=== PATIENT | female | born 1995 | race Caucasian/White ===

== ENCOUNTER → 2019-01-15 | Outpatient (CLI) | payer MEDICAID ==
--- NOTE | 2019-01-15 12:11 | Diagnostic Imaging Report ---
INDICATION: Antepartum bleeding, second trimester. TECHNIQUE: Multiple Real-time grayscale images were obtained over the gravid uterus. COMPARISON: There are no prior studies available for comparison. FINDINGS: There is a single live fetus in variable presentation. heart motion was noted and a rate of 147 BPM was recorded. There are no abnormalities identified but the spine and the intracranial ventricles were not well imaged. The growth parameters are fairly uniform. The placenta is posterior and there is no previa. The amniotic fluid volume is within normal limits. The cervix measures 3.6 in length. IMPRESSION: 1. There is a single live fetus of approximately 19 weeks 4 days gestation plus/minus 1.5 weeks. The EDC is 06/07/2019. 2. There were no abnormalities identified although the intracranial ventricles and the spine were not well imaged. A short-term (4-6 week) followup exam would be recommended for further study. 3. The growth parameters are fairly uniform. Biometrical measurements are as follows: Biparietal 4.45 cm, age 19 weeks 4 days. Head circumference 17.17 cm, age 19 weeks 6 days. Abdominal circumference 14.44 cm, age 19 weeks 6 days. Femur length 2.83 cm, age 18 weeks 5 days. Sonographic estimate age: 19 weeks 4 days. Sonographic estimated date of delivery: 06/07/2019. Estimated Weight: 286 gm (+/- 42 gm). LMP percentile: 87%. heart rate: 147 beats per minute. number: 1 of 1. IMPRESSION: Dictated by: Dictated on workstation # [id number]
== END ==
LOC: RAD 10:33
PROVIDERS: ATTEND Obstetrics & Gynecology
DX: O46.92 Antepartum hemorrhage, unspecified, second trimester (principal); Z3A.19 19 weeks gestation of pregnancy
CPT/HCPCS: 76805

== ENCOUNTER → 2019-03-02 | Outpatient (CLI) | payer MEDICAID ==
--- NOTE | 2019-03-02 13:42 | Diagnostic Imaging Report ---
INDICATION: Follow up anatomy. TECHNIQUE: Multiple real-time grayscale images were obtained over the gravid uterus. COMPARISON: 01/15/2019. FINDINGS: There is a single live fetus in a cephalic presentation. heart rate was recorded at 150 beats per minute. Placenta is posterior. Amniotic fluid volume is normal. Followup anatomy of the brain and spine was attempted. anatomy is still difficult due to positioning. IMPRESSION: Limited study due to positioning. Continued followup of brain and spine anatomy is recommended. Dictated by: Dictated on workstation # [id number]
== END ==
LOC: RAD 09:50
PROVIDERS: ATTEND Obstetrics & Gynecology
DX: Z36.89 Encounter for other specified antenatal screening (principal); Z3A.24 24 weeks gestation of pregnancy
CPT/HCPCS: 76816

== ENCOUNTER → 2019-04-18 | Outpatient (CLI) | payer MEDICAID ==
--- NOTE | 2019-04-18 12:47 | Diagnostic Imaging Report ---
INDICATION: Follow up anatomy. TECHNIQUE: Multiple real-time grayscale images were obtained over the gravid uterus. COMPARISON: 03/02/2019. FINDINGS: There is a single live fetus in a cephalic presentation. heart rate was recorded at 139 beats per minute. Placenta is fundal. Amniotic fluid index is 13.8 cm. spine is well seen today and appears unremarkable. brain is again not well seen today due to position. IMPRESSION: Limited evaluation of the brain due to position. The spine is unremarkable. Dictated by: Dictated on workstation # [id number]
== END ==
LOC: RAD 11:56
PROVIDERS: ATTEND Obstetrics & Gynecology
DX: Z34.93 Encounter for supervision of normal pregnancy, unspecified, third trimester (principal); Z3A.31 31 weeks gestation of pregnancy
CPT/HCPCS: 76816

== ENCOUNTER → 2019-05-21 | Outpatient (CLI) | payer MEDICAID ==
--- NOTE | 2019-05-21 12:40 | Diagnostic Imaging Report ---
INDICATION: Gestational diabetes, evaluate anatomy not seen on prior sonogram. TECHNIQUE: Multiple real-time grayscale images were obtained over the gravid uterus. COMPARISON: None. FINDINGS: Obstetrical ultrasonography reveals coto intrauterine gestation in cephalic presentation. Placenta is fundal without evidence of previa. Amniotic fluid index is 14 cm. cardiac activity is present with a rate of 144 beats per minute. Similar to previous study, intracranial structures are not well seen due to position. Otherwise, no anomaly is identified. biometry indicates gestational age of 36 weeks. This does indicate normal progression when compared to previous examination. Note is made of breathing motion. There is movement and tone. IMPRESSION: 1. Normal biophysical profile score of 8/8. 2. Obstetrical ultrasonography is also unremarkable with normal progression of parameters. The previous sonographic EDC of 06/14/2019 remains valid. Once again, the intracranial structures were not well visualized. Biometrical measurements are as follows: Biparietal 8.24 cm, age 33 weeks 1 days. Head circumference 32.38 cm, age 36 weeks 5 days. Abdominal circumference 33.62 cm, age 37 weeks 4 days. Femur length 6.86 cm, age 35 weeks 2 days. Sonographic estimate age: 35 weeks 5 days. Sonographic estimated date of delivery: 06/20/2019. Estimated Weight: 2915 gm (+/- 426 gm). LMP percentile: 48%. heart rate: 144 beats per minute. number: 1 of 1. Dictated by: Dictated on workstation # [id number]
== END ==
LOC: RAD 11:32
PROVIDERS: ATTEND Obstetrics & Gynecology
DX: Z04.89 Encounter for examination and observation for other specified reasons (principal); O24.410 Gestational diabetes mellitus in pregnancy, diet controlled; Z3A.35 35 weeks gestation of pregnancy
CPT/HCPCS: 76805; 76819

== ENCOUNTER 2019-06-03 04:49 | Inpatient (IN) | payer MEDICAID | END 2019-06-05 17:30 | disposition home or self-care (01) | LOC: WSo 04:49 → LDRP 04:52 → WSo 05:19 → LDRP 05:19 ==

== ENCOUNTER 2022-12-30 12:40 | Emergency (ER) | payer SELFPAY ==
[~2022-12-30] VITALS: Ht 157.4 cm; Wt 52.0 kg
[~2022-12-30 12:40] MED LIST: ACET-78 PO; FERR-84 PO; IBUP-844 PO; PREN-53 PO
--- NOTE | 2022-12-30 13:10 | ED Abdominal Pain ---
General Chief Complaint: - Reproductive Stated Complaint: ABDOMINAL PAIN Nursing Triage Note: PT AMB TO RM 4 WITH CC OF LEFT LOWER ABD PAIN X5 DAYS WITH N/V. PT TOOK A TEST 2-3 WEEKS AGO AND IT WAS POSITIVE. Source of Information: Patient Exam Limitations: No Limitations History of Present Illness Date Seen by Provider: Dec 30, 2022 Time Seen by Provider: 12:59 Initial Comments 27-year-old female presents to the emergency room with 1 week of left lower quadrant/left pelvic pain. Patient states it hurts to lay on her left side, she states the pain radiates across her lower abdomen. She has had fairly significant nausea and vomiting taking fxtn-gop-sjffayt B6 and Unisom for her nausea. She denies fevers or chills. No burning with urination. She does endorse a light clear yellow vaginal discharge for the last week with occasional spotting. She states her last menstrual cycle was November 18 which places her at an estimated gestational age of exactly 6 weeks. She states her last was 4 years ago vaginal delivery without complications and she had lots of nausea and vomiting with that. She denies any constipation issues she actually has some diarrhea. She is pushing fluids as much as she can. No fevers chills or URI symptoms. Has not taken any medications for the pain. She is concerned for ectopic . All other review of systems reviewed and negative except as stated Timing/Duration: 3-4 Days Severity/Quality: Moderate, Aching Location: LLQ (left low pelvic) Radiation: Other (across lower abdomen) Activities at Onset: None Modifying Factors: Worsens With Coughing, Worsens With Lying down Associated Symptoms: Back Pain (left posterior hip), Nausea/Vomiting Allergies and Home Medications Allergies Coded Allergies: No Known Drug Allergies (Unverified , 06/03/19) Patient Home Medication List Home Medication List Reviewed: Yes Acetaminophen (Acetaminophen) 500 Mg Tablet, 1,000 MG PO Q8HR Prescribed by: OSVALDO AYALA on 06/04/191713 Ferrous Sulfate (Iron) 325 Mg Tablet, 325 MG PO DAILY, (Reported) Entered as Reported by: ANDREW LEAL on 06/03/19 0554 Ibuprofen (Ibu) 600 Mg Tablet, 600 MG PO Q6HR Prescribed by: OSVALDO AYALA on 06/04/191713 Rqe773/Iron Fumarate/FA/Dss ( 19 Tablet) 1 Each Tablet, 1 EACH PO DAILY, (Reported) Entered as Reported by: ANDREW LEAL on 06/03/19 0539 Review of Systems Review of Systems Constitutional: see HPI EENTM: No Symptoms Reported Respiratory: No Symptoms Reported Gastrointestinal: Abdominal Pain, Nausea, Vomiting Genitourinary: Discharge (yellowish) Musculoskeletal: back pain (left posterior) All Other Systems Reviewed Negative Unless Noted: Yes Past Wsxxjqd-Lqrujd-Kjtltv Hx Patient Social History Tobacco Use?: No Smoking Status: Former Smoker Substance use?: Yes Substance type: Marijuana Alcohol Use?: No Immunizations Up To Date PED Vaccines UTD: No Seasonal Allergies Seasonal Allergies: Yes Past Medical History Surgeries: No Respiratory: No Cardiac: No Neurological: No Genitourinary: No Gastrointestinal: No Musculoskeletal: No Endocrine: Yes HEENT: No Cancer: No Psychosocial: No Integumentary: No Blood Disorders: No Adverse Reaction/Blood Tranf: No Family Medical History Diabetes mellitus 19 MOTHER, Onset:30's - 40 Physical Exam Vital Signs Vital Signs - First Documented 12/30/22 12:56 Pulse 74 B/P (MAP) 133/83 (100) Pulse Ox 97 O2 Delivery Room Air Capillary Refill : Height/Weight/BMI Height: 5'2.00" Weight: 156lbs. 0.0oz. 70.213631ea; 20.00 BMI Method: General Appearance: WD/WN, no apparent distress HEENT: PERRL/EOMI Respiratory: lungs clear, normal breath sounds, no respiratory distress, no accessory muscle use Cardiovascular: regular rate, rhythm Gastrointestinal: normal bowel sounds, non tender, soft, other (obturator sign equivocal bilaterally) Extremities: normal range of motion, non-tender, normal inspection, no pedal edema Back: other (left posterior hip/PSIS) Neurologic/Psychiatric: alert, normal mood/affect, oriented x 3 Skin: normal color, warm/dry Progress/Results/Core Measures Results/Orders Lab Results Laboratory Tests Test 12/30/22 13:08 12/30/22 13:10 Range/Units White Blood Count 8.1 4.3-11.0 10^3/uL Red Blood Count 3.88 3.80-5.11 10^6/uL Hemoglobin 12.1 11.5-16.0 g/dL Hematocrit 35 35-52 % Mean Corpuscular Volume 90 80-99 fL Mean Corpuscular Hemoglobin 31 25-34 pg Mean Corpuscular Hemoglobin Concent 35 32-36 g/dL Red Cell Distribution Width 12.6 10.0-14.5 % Platelet Count 280 130-400 10^3/uL Mean Platelet Volume 10.0 9.0-12.2 fL Immature Granulocyte % (Auto) 0 % Neutrophils (%) (Auto) 54 42-75 % Lymphocytes (%) (Auto) 39 12-44 % Monocytes (%) (Auto) 6 0-12 % Eosinophils (%) (Auto) 0 0-10 % Basophils (%) (Auto) 1 0-10 % Neutrophils # (Auto) 4.3 1.8-7.8 10^3/uL Lymphocytes # (Auto) 3.2 1.0-4.0 10^3/uL Monocytes # (Auto) 0.5 0.0-1.0 10^3/uL Eosinophils # (Auto) 0.0 0.0-0.3 10^3/uL Basophils # (Auto) 0.1 0.0-0.1 10^3/uL Immature Granulocyte # (Auto) 0.0 0.0-0.1 10^3/uL Human Chorionic Gonadotropin, Quant 75461 H <5 MIU/ML Urine Color YELLOW Urine Clarity CLEAR Urine pH 6.5 5-9 Urine Specific [place] 1.025 H 1.016-1.022 Urine Protein TRACE H NEGATIVE Urine Glucose (UA) NEGATIVE NEGATIVE Urine Ketones 1+ H NEGATIVE Urine Nitrite NEGATIVE NEGATIVE Urine Bilirubin NEGATIVE NEGATIVE Urine Urobilinogen 1.0 < = 1.0 MG/DL Urine Leukocyte Esterase NEGATIVE NEGATIVE Urine RBC (Auto) NEGATIVE NEGATIVE Urine RBC NONE /HPF Urine WBC 0-2 /HPF Urine Squamous Epithelial Cells 10-25 H /HPF Urine Crystals NONE /LPF Urine Bacteria MODERATE H /HPF Urine Casts NONE /LPF Urine Mucus LARGE H /LPF Urine Culture Indicated YES My Orders Orders - ML BILLS MD Ua Culture If Indicated (12/30/22 13:06) Cbc With Automated Diff (12/30/22 13:06) Hcg,Quantitative (12/30/22 13:06) Urine Culture (12/30/22 13:10) Us Ob<14 Wks Sngle W/Transvag (12/30/22 14:22) Vital Signs/I&O 12/30/22 12:56 Pulse 74 B/P (MAP) 133/83 (100) Pulse Ox 97 O2 Delivery Room Air Blood Pressure Mean: 100 Progress Progress Note : Time: 15:13 Progress Note Patient seen and evaluated, physical exam, lab including quantitative hCG, CBC, urine test as well as transvaginal ultrasound. Physical exam pertinent for well-developed well-nourished female in no acute distress abdomen is soft, bowel sounds are present. Minimal tenderness to the lower quadrants bilaterally. No peritoneal signs. Lungs are clear heart is regular vital signs are stable. Differential diagnosis based on history and physical, IUP versus ectopic , UTI. Labs reviewed, CBC is normal quantitative hCG is 42,000. Urinalysis shows 10-25 squamous epithelial cells with moderate to large bacteria. Nitrite negative leukocyte esterase negative. Transvaginal ultrasound reveals an intrauterine at approximately 6 weeks gestation with a heart rate of 115, no evidence of ectopic, no free fluid, no concerning cysts. Patient is reassured her is healthy at this time. She is advised Tylenol is safe in . Recommended close follow-up with OB provider, she plans on following up with Dr. Carter. Encouraged vitamins. Return precautions given. Patient verbalized understanding, is comfortable with plan of care. All questions are sought and answered Departure Impression Primary Impression: First trimester Additional Impressions: LLQ abdominal pain Asymptomatic bacteriuria antepartum Disposition: 01 HOME, SELF-CARE Condition: Stable Departure-Patient Inst. Decision time for Depature: 15:16 Referrals: NO,LOCAL PHYSICIAN (PCP) Primary Care Physician YOLANDA CARTER DO Patient Instructions: - The Second Month Add. Discharge Instructions: Continue to try and drink plenty fluids to stay well-hydrated. vitamin Gummies may be better on your stomach than the pills. Try taking this at night before bed. Continue the Unisom and B6 as needed for nausea and vomiting If you develop vaginal bleeding, worsening pain/cramping or any other emergent, concerning symptoms please return to the emergency department for reevaluation. Please follow-up with your OB provider as scheduled Scripts Cephalexin (Cephalexin) 500 Mg Tablet 500 MG PO TID for 5 Days, #15 TAB Prov: ML BILLS MD 12/30/22 ML BILLS MD Dec 30, 2022 13:10
[2022-12-30 13:16] LABS: BASOPHILS # (AUTO) 0.1 10^3/uL (0.0-0.1); BASOPHILS % (AUTO) 1 % (0-10); EOSINOPHILS % (AUTO) 0 % (0-10); HEMATOCRIT 35 % (35-52); HEMOGLOBIN 12.1 g/dL (11.5-16.0); LYMPHOCYTES # (AUTO) 3.2 10^3/uL (1.0-4.0); LYMPHOCYTES % (AUTO) 39 % (12-44); MEAN CORPUSCULAR HEMOGLOBIN 31 pg (25-34); MEAN CORPUSCULAR HGB CONC 35 g/dL (32-36); MEAN CORPUSCULAR VOLUME 90 fL (80-99); MONOCYTES # (AUTO) 0.5 10^3/uL (0.0-1.0); MONOCYTES % (AUTO) 6 % (0-12); NEUTROPHILS # (AUTO) 4.3 10^3/uL (1.8-7.8); NEUTROPHILS % (AUTO) 54 % (42-75); PLATELET COUNT 280 10^3/uL (130-400); WHITE BLOOD COUNT 8.1 10^3/uL (4.3-11.0)
[2022-12-30 13:17] LABS: BILIRUBIN,URINE NEGATIVE (NEGATIVE); CLARITY,URINE CLEAR; COLOR,URINE YELLOW; GLUCOSE, URINE (UA) NEGATIVE (NEGATIVE); KETONES,URINE 1+ (NEGATIVE); LEUKOCYTE ESTERASE ,URINE NEGATIVE (NEGATIVE); NITRITE,URINE NEGATIVE (NEGATIVE); PH,URINE 6.5 (5-9); PROTEIN,URINE TRACE (NEGATIVE)
[2022-12-30 13:25] LABS: BACTERIA,URINE MODERATE /HPF; WBC,URINE 0-2 /HPF
--- NOTE | 2022-12-30 15:24 | Diagnostic Imaging Report ---
INDICATION: Left lower pelvic pain. There is a single live IUP measuring 6 weeks 1 day gestation. heart rate was recorded at 115 bpm. No ramona-gestational sac hemorrhage is detected. Adnexa are unremarkable. There is no free fluid identified. IMPRESSION: Single live IUP 6 weeks 1 day gestational age with estimated date of confinement sonographically 08/24/2023. No complicating features are detected. Dictated by: Dictated on workstation # [id number]
[2022-12-30 15:30] VITALS: BP 114/49
[2022-12-30] MEDS ORDERED: CEPH500T PO (15:33)
== END 2022-12-30 15:30 | disposition home or self-care (01) ==
LOC: EDUNIT# 12:40 → ER 12:42
DX: O26.891 Other specified pregnancy related conditions, first trimester (principal); R10.32 Left lower quadrant pain; O99.891 Other specified diseases and conditions complicating pregnancy; R82.71 Bacteriuria; Z87.891 Personal history of nicotine dependence; Z3A.01 Less than 8 weeks gestation of pregnancy
CPT/HCPCS: 36415; 76801; 76817; 81000; 84702; 85025; 87088

== ENCOUNTER → 2023-04-04 | Outpatient (CLI) | payer MEDICAID ==
[~2023-04-04] MED LIST changes: +CEPH500T PO
--- NOTE | 2023-04-04 16:39 | Diagnostic Imaging Report ---
INDICATION: patient, survey. TECHNIQUE: Multiple real-time grayscale images were obtained over the gravid uterus. COMPARISON: None during this . FINDINGS: There is a single live intrauterine fetus measuring 20 weeks 1 day in size with sonographic EDC of 08/21/2023. The fetus is in breech presentation at this time. Placenta is posterior with no evidence of previa. Amniotic fluid index is 11.6 cm. heart rate is 140 BPM. Cervical length is 3.9 cm. The distance from the cervical os to the placental tip was 3.7 cm. There is no free fluid. survey demonstrated normal-appearing kidneys and bladder. Normal-appearing intracranial ventricles are seen. stomach appeared normal. Four-chamber heart view appeared normal. Three-vessel cord and cord insertion appear normal. Views of the spine were unremarkable. Biometrical measurements are as follows: Biparietal 4.58 cm, age 19 weeks 6 days. Head circumference 18.14 cm, age 20 weeks 4 days. Abdominal circumference 15.46 cm, age 20 weeks 5 days. Femur length 2.99 cm, age 19 weeks 2 days. Sonographic estimate age: 20 weeks 1 days. Sonographic estimated date of delivery: 08/19/23. Estimated Weight: 328 gm (+/- 48 gm). LMP percentile: 25%. heart rate: 140 beats per minute. number: 1 of 1. IMPRESSION: Single live intrauterine fetus measuring 20 weeks 1 day in size. There was no detectable abnormality. Dictated by: Dictated on workstation # [id number]
== END ==
LOC: RAD 14:39
PROVIDERS: ATTEND Nurse Practitioner Women's Health
DX: Z34.02 Encounter for supervision of normal first pregnancy, second trimester (principal); Z3A.20 20 weeks gestation of pregnancy
CPT/HCPCS: 76805

== ENCOUNTER 2023-08-09 06:30 | Inpatient (IN) | payer MEDICAID ==
[~2023-08-09] VITALS: Ht 157.5 cm; Wt 74.7 kg
[2023-08-09] VITALS (48 sets, daily range): BP systolic 81–126; BP diastolic 44–74
--- OUTSIDE RECORDS SUMMARY | 2023-08-09 07:34 | XMS REPORT ---
Author Author [facility] Address Unknown Phone Unavailable Care Team Providers Care B Operator Name Role Phone DREW AMARO Unavailable PROBLEMS Type Condition ICD9-CM Code TDP40-LC Code Onset Dates Condition Status W/U Status Risk SNOMED Code Notes Problem Screening examination for venereal disease V74.5 [id number] visit for: screenin g exam bact/spi rochetal STD Problem Symptoms of depression F32.9 confirmed [id number] Problem Acute left-sided back pain with sciatica M54.42 confirmed [id number] Problem General counseling for prescription of oral contraceptive s V25.01 [id number] Oral Contrace ptives Problem Other, multiple, and unspecified sites, insect bite, nonvenomous, infected 919.5 [id number] INSECT BITE INFECTED Problem 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 [id number] [place] [address] 16 Jun, 2021 DREW AMARO Cough R05 ; Nausea R11.0 ; Sore throat J02.9 ; Stuffy and runny nose J34.89 ; Diarrhea, unspecified type R19.7 ; Myalgia M79.10 and Vomiting alone R11.10 SOCIAL HISTORY Sex Assigned At : Social History Observation Description Sex Assigned At Unknown Cessation Question Answer Notes Date Tobacco Cessation Provided: 04/24/2020 PHQ2 Question Answer Notes In the last 2 weeks, how oft en have you had little interest or pleasure in doing things? More than half the days In the last 2 weeks, how oft en have you been feeling down, depressed, or hopeless? More than half the days Total PHQ2 Score 4 REASON FOR REFERRAL No Information MEDICATIONS Medication SIG (Take, Route, Frequency, Duration) Notes Start Date End Date Status Norgestimate-Eth Estradiol 0.25-35 MG-MCG 1 tablet Orally Once a day for 90 days Sep, Active REASON FOR VISIT Covid Testing-[employer] [employer]-Exposed Symptomatic-[employer]--eileen rosenberg MEDICAL (GENERAL) HISTORY Type Description Date Surgical History IUD following child er, MENTAL STATUS No Information ASSESSMENTS Encounter Date Diagnosis Assessment Notes Treatment Notes Treatment Clinical Notes Jun, Cough (ICD-10 - R05) Jun, Nausea (ICD-10 - R11.0) Jun, Sore throat (ICD-10 - J02.9) Jun, Stuffy and runny nose (ICD-10 - J34.89) Jun, Diarrhea, unspecified type (ICD-10 - R19.7) Jun, Myalgia (ICD-10 - M79.10) Jun, Vomiting alone (ICD-10 - R11.10) Jun, Other Patient was instructed to self-isolate at home until further instruction from clinic staff PLAN OF TREATMENT Medication Medication Name Sig Start Date Stop Date Norgestimate-Eth Estradiol 0.25-35 MG-MCG 1 tablet Orally Once a day for 90 days Sep, MEDICATIONS ADMINISTERED Medication Instructions Date of Administration Dosag e TORADOL 30 MG/2ML (KETOROLAC) Apr, 0 60 mg
--- NOTE | 2023-08-09 07:44 | History & Physical-OB ---
OB - Chief Complaint & HPI Date/Time Date of Admission: Date of Admission: Aug 09, 2023 at 07:25 Date seen by a Provider: Aug 09, 2023 Time Seen by a Provider: 07:42 Chief Complaint/History OB-Reason for Admission/Chief: Induction of Labor Hx : 2 Hx Para: 1 Expected Date of Delivery: Aug 19, 2023 Gestational Age in Weeks: 38 Gestational Age in Days: 4 Other reason for admission: IOL at 38 weeks due to GDMA2 Admission Nurse Assessment Rev: Yes History of Labs O pos Antibody neg RI RPR NR HBsAg NR HIV NR GC neg GBS neg Allergies and Home Medications Allergies Coded Allergies: No Known Drug Allergies (Unverified , 06/03/19) Patient Home Medication List Home Medication List Reviewed: Yes Acetaminophen (Acetaminophen) 500 Mg Tablet, 1,000 MG PO Q8HR Prescribed by: OSVALDO AYALA on 06/04/191713 Cephalexin (Cephalexin) 500 Mg Tablet, 500 MG PO TID Prescribed by: ML BILLS on 12/30/22 153 Ferrous Sulfate (Iron) 325 Mg Tablet, 325 MG PO DAILY, (Reported) Entered as Reported by: ANDREW LEAL on 06/03/19538 Ibuprofen (Ibu) 600 Mg Tablet, 600 MG PO Q6HR Prescribed by: OSVALDO AYALA on 06/04/191713 Srd700/Iron Fumarate/FA/Dss ( 19 Tablet) 1 Each Tablet, 1 EACH PO DAILY, (Reported) Entered as Reported by: ANDREW LEAL on 06/03/1939 OB - History Hx of Present Care: Yes Ultrasounds: Normal mid trimester US Obstetrical Complications: Gestational Diabetes Medical Complications: None Delivery History Adverse Rxn to Tranfusion: No Patient Past Medical History nc Immunizations Hepatitis A: Yes Hepatitis B: Yes OB - Admission Exam Physical Exam HEENT: NCAT Heart: Rhythm Normal Lungs: Clear Abdomen: Gravid Extremities: Normal Reflexes: Normal Cervical Dilatation: 3cm Effacement: 75% Station: -1 Membranes: Intact Heart Rate: 130's Accelerations: Accelerations Present Decelerations: No Decelerations Short Term Variability: Present Correction Variability: Average (6-25) Contractions on Admission: 6-10 Minutes Apart Intensity: Mild Selby Scoring Tool (Modified) Dilation (cm): 3-4cm (2) Effacement (%): 51-79% (2) Descent/Station: -1,0 (2) Cervix Consistency: Soft (2) Cervix Position: Anterior (2) Add 1 point for: Each previous vaginal delivery (1) Selby Score: 11 OB - Assessment/Plan/Diagnosis Assessment Assessment: induction of labor Admission Dx 28 yo @ 38 weeks GDMA2- on glyburide GBS neg Admission Status: Inpatient Order (span 2 midnights) Reason for Inpatient Admission: IOL at 38 weeks Plan Plan: Induction Induction Method: YOLANDA CAVAZOS DO Aug 09, 2023 07:44
[2023-08-09] MEDS ORDERED: OXYTOCIN DRIP PRE-MIX 500 ML IV SCH ×2 (08:30→16:00)
[2023-08-09 08:39] LABS: BASOPHILS # (AUTO) 0.1 10^3/uL (0.0-0.1); BASOPHILS % (AUTO) 1 % (0-10); EOSINOPHILS # (AUTO) 0.1 10^3/uL (0.0-0.3); EOSINOPHILS % (AUTO) 1 % (0-10); HEMATOCRIT 32 % (35-52); HEMOGLOBIN 10.7 g/dL (11.5-16.0); LYMPHOCYTES # (AUTO) 1.9 10^3/uL (1.0-4.0); LYMPHOCYTES % (AUTO) 18 % (12-44); MEAN CORPUSCULAR HEMOGLOBIN 30 pg (25-34); MEAN CORPUSCULAR HGB CONC 33 g/dL (32-36); MEAN CORPUSCULAR VOLUME 90 fL (80-99); MEAN PLATELET VOLUME 10.1 fL (9.0-12.2); MONOCYTES # (AUTO) 0.5 10^3/uL (0.0-1.0); MONOCYTES % (AUTO) 5 % (0-12); NEUTROPHILS # (AUTO) 7.6 10^3/uL (1.8-7.8); NEUTROPHILS % (AUTO) 73 % (42-75); PLATELET COUNT 263 10^3/uL (130-400); WHITE BLOOD COUNT 10.3 10^3/uL (4.3-11.0)
[2023-08-09] MEDS ORDERED: MINERAL OIL 30 ML UDC TOP PRN (08:45)
[2023-08-09] MEDS ORDERED: LACTATED RINGERS 1,000 ML 500 ML IV PRN (08:45)
[2023-08-09 08:55] LABS: COLOR,URINE YELLOW
[2023-08-09 08:56] LABS: BACTERIA,URINE TRACE /HPF; BILIRUBIN,URINE NEGATIVE (NEGATIVE); CLARITY,URINE CLEAR; GLUCOSE, URINE (UA) NEGATIVE (NEGATIVE); KETONES,URINE NEGATIVE (NEGATIVE); LEUKOCYTE ESTERASE ,URINE TRACE (NEGATIVE); NITRITE,URINE NEGATIVE (NEGATIVE); PROTEIN,URINE NEGATIVE (NEGATIVE)
[2023-08-09] MEDS: D5 LR 1,000 ML IV SOLN 1,000 ML IV SCH ×2 (09:04→15:29)
[2023-08-09] MEDS ORDERED: CATHETER FLUSH 10 ML SYR IV SCH ×2 (14:00→22:00)
[2023-08-09] MEDS ORDERED: fentaNYL 2 mcg/ml BUPIVA 0.125 100 ML ONE (14:03)
[2023-08-09] MEDS ORDERED: fentaNYL INJECTION 100 MCG/2 ML VIAL ONE (14:55)
[2023-08-09] MEDS ORDERED: BUPIVACAINE 0.25% 10 ML VIAL ONE (14:55)
[2023-08-09] MEDS ORDERED: ONDANSETRON INJECTION 4 MG/2 ML (SDV) IV PRN (15:30)
[2023-08-09] MEDS ORDERED: NALOXONE 0.4 MG/ML 1 ML VIAL IV PRN ×2 (15:30→16:00)
[2023-08-09] MEDS ORDERED: LACTATED RINGERS 1,000 ML 1,000 ML IV ONE (15:30)
[2023-08-09] MEDS ORDERED: CATHETER FLUSH 10 ML SYR IV PRN (15:30)
[2023-08-09] MEDS ORDERED: fentaNYL 2 mcg/ml BUPIVA 0.125 100 ML EPI SCH (15:30)
[2023-08-09] MEDS ORDERED: diphenhydrAMINE INJ 50 MG/ML VIAL IV PRN (15:30)
--- NOTE | 2023-08-09 15:56 | OB Labor & Delivery Record ---
L&D History Date of Service Date of Service: Aug 09, 2023 History Expected Date of Delivery: Aug 19, 2023 Gestational Age in Weeks: 38 Hx : 2 Hx Para: 1 Complications Events: Gestational Diabetes, Routine care Operative Indications (Cesarea: N/A-Vaginal Delivery Intrapartal Events: None L&D Stage1 Stage One Onset of Labor - Date: Aug 10, 2023 Monitors and Tracing Monitor Mode: External Heart Rate: 125 Monitor Accelerations: Uniform Monitor Decelerations: None Station: -1 Senior Care Variability: Average (6-10) Short Term Variability: Present Presentation: Vertex Vital Signs VS - Last 72 Hours, by Label 08/09/23 08/09/23 08/09/23 08/09/23 07:50 09:00 09:17 09:32 Temp 36.7 36.7 Pulse 87 78 66 63 Resp 20 20 B/P (MAP) 108/63 (78) 96/51 (66) 98/55 (69) Pulse Ox 99 99 O2 Delivery Room Air Room Air 08/09/23 08/09/23 08/09/23 08/09/23 09:55 10:02 10:18 10:32 Pulse 75 72 66 72 B/P (MAP) 108/54 (72) 97/62 (74) 103/59 (74) 101/63 (76) 08/09/23 08/09/23 08/09/23 08/09/23 10:48 11:03 11:18 11:32 Temp 36.8 Pulse 77 76 78 69 B/P (MAP) 107/57 (74) 108/74 (85) 105/62 (76) 97/61 (73) 08/09/23 08/09/23 08/09/23 08/09/23 11:48 12:02 12:17 12:33 Pulse 74 63 67 59 B/P (MAP) 110/57 (74) 91/51 (64) 103/52 (69) 99/58 (72) 08/09/23 08/09/23 08/09/23 08/09/23 12:48 13:04 13:20 13:32 Temp 37.2 Pulse 74 71 65 57 B/P (MAP) 105/65 (78) 105/55 (72) 101/69 (80) 101/64 (76) 08/09/23 08/09/23 08/09/23 08/09/23 13:48 14:02 14:18 14:48 Pulse 73 58 69 90 B/P (MAP) 108/68 (81) 104/59 (74) 108/67 (81) 109/65 (80) 08/09/23 08/09/23 08/09/23 08/09/23 15:08 15:13 15:21 15:25 Temp 36.9 Pulse 84 83 78 74 B/P (MAP) 126/58 (80) 109/53 (71) 118/58 (78) 106/58 (74) Pulse Ox 99 98 98 98 O2 Delivery Room Air Room Air Room Air Room Air 08/09/23 08/09/23 08/09/23 15:28 15:33 15:40 Pulse 75 67 76 B/P (MAP) 106/57 (73) 90/60 (70) 93/44 (60) Pulse Ox 99 100 100 O2 Delivery Room Air Non Rebreather Non Rebreather O2 Flow Rate 15.00 15.00 Rupture of Membranes Spontaneous Ruture of Membrane: No Amniotic Membrane Rupture Time: 09:45 Amniotic Membrane Fluid Desc.: Clear Vaginal Bleeding Description: Normal Show Induction/Anesthesia Epidural Cath Placement - Time: 1512 Progress/Notes Patient admitted for IOL due to GDMA2. AROM performed this AM. She progressed with pitocin augmentation and received an epidural to complete and + 2 station. L&D Stage2 Stage Two Stage II Date: Aug 10, 2023 Monitors and Tracing Monitor Mode: External Heart Rate: 125 Monitor Accelerations: Uniform Monitor Decelerations: None Turn Out Variability: Average (6-10) Short Term Variability: Present Position: Right Occiput Anterior Cord Descript/Complications Cord Vessel Description: 3 Vessels Delivery Type Delivery Method: Spontaneous Vaginal Anterior Shoulder: Left Episiotomy/Perineal Laceration Laceraction(s)/Extensions: No Condition of Infant Delivery 1 minute Comment: 8 5 minute Comment: 9 Notes Live male weight 6lbs 14 oz Condition of Infant Condition of : Living Exam: No Observed Abnormalities Resuscitation Resuscitation: N/A - Spontaneous Resp L&D Stage3 Stage Three Stage III Date: Aug 09, 2023 Pictocin Pitocin Administration mu/min: 8 Pitocin ml/hr: 8 Pitocin Administration Comment: 30 mu wide open after delivery of placenta Placenta Delivery Placenta Delivery: Spontaneous Delivery Summary Summary Estimated blood loss (mL): 200 Attending at delivery: Yolanda Maria DO Condition of Delivery Examined: Cervix Examined, Uterus Explored Post Hemorrhage: No Condition of Mother stable Condition of (s) stable YOLANDA MARIA DO Aug 09, 2023 15:56
[2023-08-09] MEDS ORDERED: MEASLES, MUMPS, RUBELLA VACCINE (MMR) SQ ONE (16:00)
[2023-08-09] MEDS ORDERED: WITCH HAZEL(TUCKS) 40 EA JAR TOP PRN (16:00)
[2023-08-09] MEDS ORDERED: DIBUCAINE 1% OINTMENT 28 GM TUBE TOP PRN (16:00)
[2023-08-09] MEDS ORDERED: Tetanus/Diphtheria/Pertussis (Acell) ADULT Vaccine 0.5 ML IM ONE (16:00)
[2023-08-09] MEDS ORDERED: BENZOCAINE/MENTHOL (DERMOPLAST) 56 ML CAN TP PRN (16:00)
[2023-08-09] MEDS: IBUPROFEN 600 MG TABLET PO SCH ×2 (16:48→21:59)
[2023-08-09] MEDS: ACETAMINOPHEN 500 MG TABLET PO SCH ×2 (16:48→21:59)
[2023-08-09] MEDS: DOCUSATE SODIUM 100 MG CAPSULE PO SCH (21:59)
[2023-08-10 02:50] VITALS: BP 94/51
[2023-08-10 06:08] LABS: BASOPHILS # (AUTO) 0.1 10^3/uL (0.0-0.1); BASOPHILS % (AUTO) 1 % (0-10); EOSINOPHILS # (AUTO) 0.2 10^3/uL (0.0-0.3); EOSINOPHILS % (AUTO) 2 % (0-10); HEMATOCRIT 30 % (35-52); HEMOGLOBIN 9.9 g/dL (11.5-16.0); LYMPHOCYTES # (AUTO) 2.8 10^3/uL (1.0-4.0); LYMPHOCYTES % (AUTO) 24 % (12-44); MEAN CORPUSCULAR HEMOGLOBIN 30 pg (25-34); MEAN CORPUSCULAR HGB CONC 33 g/dL (32-36); MEAN CORPUSCULAR VOLUME 91 fL (80-99); MEAN PLATELET VOLUME 9.8 fL (9.0-12.2); MONOCYTES # (AUTO) 0.7 10^3/uL (0.0-1.0); MONOCYTES % (AUTO) 6 % (0-12); NEUTROPHILS # (AUTO) 7.8 10^3/uL (1.8-7.8); NEUTROPHILS % (AUTO) 67 % (42-75); PLATELET COUNT 228 10^3/uL (130-400); WHITE BLOOD COUNT 11.7 10^3/uL (4.3-11.0)
[2023-08-10] MEDS ORDERED: PRENATAL VITAMIN TABLET PO SCH (07:00)
--- NOTE | 2023-08-10 08:39 | Postpartum Progress Note ---
Note Note Day # 1 Subjective: Patient is without complaints. Ambulating, voiding. Tolerating a regular diet without nausea or vomiting. Normal lochia. Pain is well controlled with oral pain medications. Objective: Physical Exam: General - Alert and oriented, no apparent distress Abdomen - Soft, appropriately tender to palpation, non-distended, fundus firm at umbilicus Extremities - no edema, negative Beverley's bilaterally Assessment: PPD 1 NVD Acute blood loss anemia Plan: Routine care. Encourage breast feeding. Encourage ambulation. Ferrous sulfate supplementation. Plan for discharge today or tomorrow pending release. Vitals - Labs Vital Signs - I&O Vital Signs Date Time Temp Pulse Resp B/P (MAP) Pulse Ox O2 Delivery O2 Flow Rate FiO2 08/10/23 02:50 36.1 83 18 94/51 (65) 98 Room Air 08/09/23 21:59 37.0 68 18 101/59 (73) 99 Room Air 08/09/23 18:05 36.7 72 116/72 (87) 08/09/23 17:45 36.8 60 116/53 (74) 08/09/23 17:29 36.6 71 102/53 (69) 08/09/23 17:14 36.6 85 106/58 (74) 08/09/23 17:00 36.9 71 105/58 (74) 08/09/23 16:45 36.9 87 108/64 (79) 08/09/23 16:32 37.1 72 99/56 (70) 08/09/23 16:25 37.2 77 100/58 (72) 08/09/23 16:23 61 104/59 (74) 08/09/23 16:13 67 106/60 (75) 08/09/23 16:09 77 107/60 (76) 08/09/23 16:05 80 100/59 (73) 93 Room Air 08/09/23 16:01 82 94/56 (69) 100 08/09/23 15:57 76 96/52 (67) 100 08/09/23 15:53 71 81/46 (58) 99 08/09/23 15:50 76 87/46 (60) 100 Non Rebreather 15.00 08/09/23 15:40 76 93/44 (60) 100 Non Rebreather 15.00 08/09/23 15:33 67 90/60 (70) 100 Non Rebreather 15.00 08/09/23 15:28 75 106/57 (73) 99 Room Air 08/09/23 15:25 74 106/58 (74) 98 Room Air 08/09/23 15:21 78 118/58 (78) 98 Room Air 08/09/23 15:13 83 109/53 (71) 98 Room Air 08/09/23 15:08 36.9 84 126/58 (80) 99 Room Air 08/09/23 14:48 90 109/65 (80) 08/09/23 14:18 69 108/67 (81) 08/09/23 14:02 58 104/59 (74) 08/09/23 13:48 73 108/68 (81) 08/09/23 13:32 57 101/64 (76) 08/09/23 13:20 37.2 65 101/69 (80) 08/09/23 13:04 71 105/55 (72) 08/09/23 12:48 74 105/65 (78) 08/09/23 12:33 59 99/58 (72) 08/09/23 12:17 67 103/52 (69) 08/09/23 12:02 63 91/51 (64) 08/09/23 11:48 74 110/57 (74) 08/09/23 11:32 69 97/61 (73) 08/09/23 11:18 78 105/62 (76) 08/09/23 11:03 36.8 76 108/74 (85) 08/09/23 10:48 77 107/57 (74) 08/09/23 10:32 72 101/63 (76) 08/09/23 10:18 66 103/59 (74) 08/09/23 10:02 72 97/62 (74) 08/09/23 09:55 75 108/54 (72) 08/09/23 09:32 63 98/55 (69) 08/09/23 09:17 66 96/51 (66) 08/09/23 09:00 36.7 78 20 108/63 (78) 99 Room Air I & O 08/10/23 06:59 Intake Total 1900 ml Balance 1900 ml Labs Laboratory Tests 08/09/23 10:15: Glucometer 100 08/10/23 06:00: White Blood Count 11.7H, Red Blood Count 3.32L, Hemoglobin 9.9L, Hematocrit 30L, Mean Corpuscular Volume 91, Mean Corpuscular Hemoglobin 30, Mean Corpuscular Hemoglobin Concent 33, Red Cell Distribution Width 13.5, Platelet Count 228, Mean Platelet Volume 9.8, Immature Granulocyte % (Auto) 1, Neutrophils (%) (Auto) 67, Lymphocytes (%) (Auto) 24, Monocytes (%) (Auto) 6, Eosinophils (%) ( Auto) 2, Basophils (%) (Auto) 1, Neutrophils # (Auto) 7.8, Lymphocytes # (Auto) 2.8, Monocytes # (Auto) 0.7, Eosinophils # (Auto) 0.2, Basophils # (Auto) 0.1, Immature Granulocyte # (Auto) 0.1, Glucose Level 89 YOLANDA MARIA DO Aug 10, 2023 08:39
--- NOTE | 2023-08-10 08:40 | Discharge Inst-Women's Service ---
Discharge Inst-Women's Serv Depart Medication/Instructions New, Converted or Re-Newed RX: Transmitted to Pharmacy Final Diagnosis PPD 1 NVD Problems Reviewed?: Yes Consults/Follow Up Additional Follow Up: Yes Orders/Referrals Dr. Maria in 6 weeks Activity Activity: Activity as Tolerated Driving Instructions: No Driving for 1 Week NO SMOKING: NO SMOKING Nothing Inside Vagina: No Douching, No [place], No Tampons Diet Discharge Diet: No Restrictions Symptoms to Report to : Bleeding Excessive, Pain Increased, Fever Over 101 Degrees F, Vaginal Bleeding Increase, Questions/Concerns For Any Problems or Questions: Contact Your Physician YOLANDA MARIA DO Aug 10, 2023 08:40
[2023-08-10] MEDS ORDERED: PNV1TABL67 PO (08:41)
[2023-08-10] MEDS ORDERED: BENZ78AE5 TP (08:41)
[2023-08-10] MEDS ORDERED: DIBU30OI TOP (08:41)
[2023-08-10] MEDS ORDERED: DOCU100C37 PO (08:41)
[2023-08-10] MEDS ORDERED: IBUP-844 PO (08:41)
[2023-08-10] MEDS ORDERED: FERR325T24 PO (08:41)
[2023-08-10 08:55] VITALS: BP 97/64
[2023-08-10] MEDS ORDERED: DOCUSATE CALCIUM 240 MG CAPSULE PO SCH (09:00)
[2023-08-10] MEDS ORDERED: FERROUS SULFATE 325 MG (IRON) TABLET PO SCH (09:00)
[2023-08-10] MEDS: IBUPROFEN 600 MG TABLET PO SCH ×2 (09:57→16:45)
[2023-08-10] MEDS: ACETAMINOPHEN 500 MG TABLET PO SCH ×2 (09:57→16:45)
[2023-08-10] MEDS: DOCUSATE SODIUM 100 MG CAPSULE PO SCH (09:59)
--- NOTE | 2023-08-10 14:24 | Anesthesia-Regional Post-Op ---
Regional Patient Condition Mental Status: Alert, Oriented x3 Circulation: Same as Pre-Op Headache: Absent Sensation: Full Recovery Motor Block: Absent Post Op Complications Complications None Follow Up Care/Instructions Patient Instructions None needed. Anesthesia/Patient Condition Patient is doing well, no complaints, stable vital signs, no apparent adverse anesthesia problems. No complications reported per nursing. CROW LUNA CRNA Aug 10, 2023 14:24
[2023-08-10 16:45] VITALS: BP 104/75
== END 2023-08-10 18:15 | disposition home or self-care (01) | DRG 806 ==
LOC: LDRP 07:25
PROVIDERS: ADMIT Obstetrics & Gynecology; ATTEND Obstetrics & Gynecology
PROC: 10E0XZZ Delivery of Products of Conception, External Approach (ICD-10-PCS; principal; 2023-08-09)
PROC: 10907ZC Drainage of Amniotic Fluid, Therapeutic from Products of Conception, Via Natural or Artificial Opening (ICD-10-PCS; 2023-08-09)
DX: O24.425 Gestational diabetes mellitus in childbirth, controlled by oral hypoglycemic drugs (principal); D62 Acute posthemorrhagic anemia; Z37.0 Single live birth; O90.81 Anemia of the puerperium; Z3A.38 38 weeks gestation of pregnancy
CPT/HCPCS: 36415; 81000; 82947; 85025; 86780; 86850; 86900; 86901; 87088